=== PATIENT | female | born 1940 | race Caucasian/White ===

== ENCOUNTER 2017-11-19 07:23 | Day surgery (SDC) ==
[2017-11-19] MEDS ORDERED: BRIMONIDINE TARTRATE 0.2% OPTH SOL OP PRN (07:42)
[2017-11-19] MEDS ORDERED: LIDOCAINE 1% 20 ML MDV ID STA (07:42)
[2017-11-19] MEDS ORDERED: ZOFRAN 4 MG/2 ML IVP ONE (07:42)
[2017-11-19] MEDS: TETRACAINE 0.5% UNIT-DOSE OP PRN ×3 (07:42→09:08)
[2017-11-19] MEDS: BETADINE OPTH PREP OP PRN ×2 (07:42→08:52)
[2017-11-19] MEDS: CYCLOGYL 2% OPTH OP PRN ×3 (07:43→07:53)
[2017-11-19] MEDS: DEX-MOXI-KETOR OPTH INJ 1/0.5/0.4 MG/ML IO ONE ×2 (08:56→09:09)
[2017-11-19] MEDS: LIDOCAINE 1%/PHENYLEPHRINE 1.5% BSS (SURGERY) INTRAOCULA ONE ×2 (08:56→09:09)
[2017-11-19] MEDS: BSS WITH EPINEPHRINE OP ONE ×2 (08:56→09:09)
[2017-11-19] MEDS ORDERED: VERSED ONE (09:00)
[2017-11-19] MEDS ORDERED: SUBLIMAZE ONE (09:00)
[2017-11-21 11:06] VITALS: BP 127/56
== END 2017-11-19 09:50 | disposition home or self-care (01) ==
LOC: SURG 07:23
PROVIDERS: ATTEND Ophthalmology
DX: H25.13 Age-related nuclear cataract, bilateral (principal)

== ENCOUNTER 2017-12-03 08:35 | Day surgery (SDC) ==
[2017-12-03] MEDS: TETRACAINE 0.5% UNIT-DOSE OP PRN ×2 (10:02→10:35)
[2017-12-03] MEDS: BETADINE OPTH PREP OP PRN ×2 (10:02→10:35)
[2017-12-03] MEDS ORDERED: LIDOCAINE 1% 20 ML MDV ID STA (10:03)
[2017-12-03] MEDS: CYCLOGYL 2% OPTH OP PRN ×3 (10:03→10:13)
[2017-12-03] MEDS ORDERED: BSS WITH EPINEPHRINE OP ONE (10:03)
[2017-12-03] MEDS ORDERED: BRIMONIDINE TARTRATE 0.2% OPTH SOL OP PRN (10:03)
[2017-12-03] MEDS ORDERED: ZOFRAN 4 MG/2 ML IVP ONE (10:03)
[2017-12-03] MEDS ORDERED: DEX-MOXI-KETOR OPTH INJ 1/0.5/0.4 MG/ML IO ONE (10:03)
[2017-12-03] MEDS ORDERED: LIDOCAINE 1%/PHENYLEPHRINE 1.5% BSS (SURGERY) INTRAOCULA ONE (10:03)
[2017-12-03] MEDS ORDERED: VERSED ONE (10:45)
[2017-12-03] MEDS ORDERED: SUBLIMAZE ONE (10:45)
[2017-12-03 16:38] VITALS: TEMP 97.6
[2017-12-05 13:50] VITALS: BP 118/56
== END 2017-12-03 11:30 | disposition home or self-care (01) ==
LOC: SURG 08:35
PROVIDERS: ATTEND Ophthalmology
DX: H25.11 Age-related nuclear cataract, right eye (principal)